=== PATIENT | female | born 1970 | race Caucasian/White ===

== ENCOUNTER 2017-01-23 16:14 | Emergency (ER) | payer OTHER ==
[2017-01-23 17:18] LABS: BASOPHIL 0.6 % (0-2); EOSINOPHIL 7.5 % (0-5); HCT 25.1 % (37.0-47.0); HGB 8.3 g/dl (12.5-16.0); LYMPHOCYTE 30.2 % (15-48); MCH 26.3 pg (25.0-31.0); MCHC 33.1 g/dL (32.0-36.0); MCV 79.7 fL (78.0-100.0); MONOCYTE 10.8 % (0-12); MPV 10.7 fL (6.0-9.5); NEUTROPHIL 50.9 % (41-80); PLT 205 K/uL (150-400); RBC 3.15 M/uL (4.20-5.40); RDW 13.8 % (11.5-14.0); WBC 3.6 K/uL (4.0-10.5)
[2017-01-23 17:48] LABS: CREATININE 0.6 mg/dL (0.5-1.0); POTASSIUM 4.2 mmol/L (3.5-5.1)
== END 2017-01-23 17:52 | disposition home or self-care (01) ==
LOC: FER 16:14
PROVIDERS: Nurse Practitioner
DX: N93.8 Other specified abnormal uterine and vaginal bleeding (principal); D64.9 Anemia, unspecified; N28.9 Disorder of kidney and ureter, unspecified; J45.909 Unspecified asthma, uncomplicated; Z88.5 Allergy status to narcotic agent; Z91.09 Other allergy status, other than to drugs and biological substances; Z98.890 Other specified postprocedural states
CPT/HCPCS: 36415; 80048; 85025; 99284